=== PATIENT | male | born 1955 | race Two or more races ===

== ENCOUNTER 2017-02-15 11:03 | Emergency (ER) | payer MEDICAID, OTHER ==
[~2017-02-15] VITALS: Ht 162.6 cm; Wt 74.8 kg
[2017-02-15 11:03] VITALS: BP 138/80
--- NOTE | 2017-02-15 11:25 | NUR ---
Patient discharged to home in stable condition. Written and verbal after care instructions given. Patient verbalizes understanding of instruction.
== END 2017-02-15 11:26 | disposition home or self-care (01) ==
LOC: ER 11:05
DX: F10.129 Alcohol abuse with intoxication, unspecified (principal); Z88.0 Allergy status to penicillin; Z88.6 Allergy status to analgesic agent
CPT/HCPCS: 99283; A4606; Z7610

== ENCOUNTER 2017-02-28 21:14 | Emergency (ER) | payer OTHER ==
[~2017-02-28] VITALS: Ht 165.1 cm; Wt 65.8 kg
--- NOTE | 2017-02-28 21:15 | NUR ---
pt to er bb ra for etoh. heavy smell of alcohol on pt breath. pt awake, alert and cooperative, however does appear intoxicated. admits to drinking alcohol. pt to er bed, changed into gown and connected to monitor. pt vital signs stable. breaths equal and unlabored. will cont to monitor pt.
[2017-02-28 22:07] LABS: BASOPHILS # (AUTO) 0.1 /CMM (0.0-0.2); BASOPHILS % (AUTO) 1.2 % (0.0-2.0); EOSINOPHILS # (AUTO) 0.2 /CMM (0.0-0.7); EOSINOPHILS % (AUTO) 2.4 % (0.0-6.0); HEMATOCRIT 27 % (39-51); HEMOGLOBIN 8.9 g/dL (13.5-17.5); LYMPHOCYTES # (AUTO) 2.8 /CMM (0.8-4.8); MEAN CORPUSCULAR HEMOGLOBIN 27 PG (26.0-33.0); MEAN CORPUSCULAR HGB CONC 33 g/dl (31.0-36.0); MEAN CORPUSCULAR VOLUME 82 fL (80-96); MONOCYTES # (AUTO) 0.5 /CMM (0.1-1.30); MONOCYTES % (AUTO) 5.2 % (2.0-12.0); NEUTROPHILS % (AUTO) 62.2 % (43.0-81.0); PLATELET COUNT (AUTO) 331 /CMM (150-450); RDW COEFFICIENT OF VARIATION 23.9 (11.5-15.0); RED BLOOD CELL COUNT(AUTO) 3.29 MIL/uL (4.5-6.0); WHITE BLOOD COUNT (AUTO) 9.6 K/uL (4.3-11.0)
[2017-02-28 22:18] LABS: CREATININE 0.9 mg/dL (0.6-1.3); POTASSIUM 3.3 mmol/L (3.5-5.1)
[2017-02-28 22:33] LABS: ALBUMIN 3.1 g/dL (3.4-5.0); BILIRUBIN,TOTAL 0.1 mg/dL (0.2-1.0); TOTAL PROTEIN, SERUM 7.5 g/dL (6.4-8.2)
--- NOTE | 2017-03-01 01:30 | NUR ---
pt sleeping in gurney. no signs of distress noted. pt vital signs stable. pt easily arousable. breaths equal and unlabored. will cont to monitor pt.
--- NOTE | 2017-03-01 05:49 | NUR ---
pt awake, alert and oriented x 4. pt admits to drinking yesterday. pt denies si/hi. pt requesting to be discharged home. pt ok to be discharged home per dr peñaloza. IV removed. Catheter intact and site benign. Pressure and 4x4 applied to site. No bleeding noted.Patient discharged to home in stable condition. Written and verbal after care instructions given. Patient verbalizes understanding of instruction.Patient is awake and alert to self, day, and place. pt ambulatory with a steady gait
[2017-03-01 05:56] VITALS: BP 127/80
== END 2017-03-01 05:56 | disposition home or self-care (01) ==
LOC: ER 21:15
DX: F10.229 Alcohol dependence with intoxication, unspecified (principal); F32.9 Major depressive disorder, single episode, unspecified; Z88.0 Allergy status to penicillin; Z88.6 Allergy status to analgesic agent
CPT/HCPCS: 80048-TC; 80076-TC; 85025-TC; A4606; G0480; Z7610

== ENCOUNTER 2017-03-03 11:55 | Emergency (ER) | payer OTHER ==
[~2017-03-03] VITALS: Ht 154.9 cm; Wt 56.7 kg
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
--- NOTE | 2017-03-03 12:38 | NUR ---
PT TAKEN TO CT VIA OUSMANE
[2017-03-03 14:15] VITALS: BP 126/66
[2017-03-03] MEDS ORDERED: TDAP [DIPH/PERTUSSIS/TET] 0.5 ML VIAL IM ONE ×2 (14:15→14:30)
== END 2017-03-03 14:32 | disposition home or self-care (01) ==
LOC: ER 11:57
DX: S06.0X9A Concussion with loss of consciousness of unspecified duration, initial encounter (principal); S00.03XA Contusion of scalp, initial encounter; S00.91XA Abrasion of unspecified part of head, initial encounter; F10.10 Alcohol abuse, uncomplicated; Z23 Encounter for immunization; Z88.0 Allergy status to penicillin; Z88.6 Allergy status to analgesic agent; Y04.2XXA Assault by strike against or bumped into by another person, initial encounter; Y93.89 Activity, other specified; Y92.89 Other specified places as the place of occurrence of the external cause; Y99.9 Unspecified external cause status
CPT/HCPCS: 70450; 72125; 90471; 90715; 99284; A4606; A6402; Z7610

== ENCOUNTER 2017-07-01 11:44 | Emergency (ER) | payer OTHER ==
[~2017-07-01] VITALS: Ht 152.4 cm; Wt 68.9 kg
--- NOTE | 2017-07-01 11:46 | NUR ---
PT AMBULATORY TO ER BED 14. STATES BEEN DRINKING LAST NIGHT AND NOW HAVING LUQ ABDOMINAL PAIN W NAUSEA AND VOMITING DENIES DIARRHEA. PLACED ON MONITOR. NAD NOTED. AWAITING MD MARQUEZ.
--- NOTE | 2017-07-01 11:53 | NUR ---
DR NERI AT BEDSIDE FOR EVAL.
[2017-07-01] MEDS ORDERED: ONDANSETRON HCL/PF 4 MG/2 ML VIAL IVP ONE (12:00)
[2017-07-01] MEDS ORDERED: IV NS 0.9% 1,000 ML BAG IV ONE ×2 (12:00→14:00)
[2017-07-01] MEDS ORDERED: LIDOCAINE VISCOUS 2% UD 15 ML UDC MM ONE (12:00)
[2017-07-01] MEDS ORDERED: MAG HYDROX/AL HYDROX/SIMETH 30 ML UDC PO ONE (12:00)
--- NOTE | 2017-07-01 12:10 | NUR ---
IV LINE STARTED BLOOD DRAWN AND SENT TO LAB.
[2017-07-01] MEDS ORDERED: LIDOCAINE VISCOUS 2% UD 15 ML UDC ONE (12:21)
[2017-07-01] MEDS ORDERED: ONDANSETRON HCL/PF 4 MG/2 ML VIAL ONE ×2 (12:21→15:25)
[2017-07-01] MEDS ORDERED: MAG HYDROX/AL HYDROX/SIMETH 30 ML UDC ONE (12:21)
[2017-07-01 12:42] LABS: BASOPHILS % (AUTO) 0.5 % (0.0-2.0); EOSINOPHILS # (AUTO) 0.1 /CMM (0.0-0.7); EOSINOPHILS % (AUTO) 1.1 % (0.0-6.0); HEMATOCRIT 31 % (39-51); HEMOGLOBIN 9.8 g/dL (13.5-17.5); LYMPHOCYTES # (AUTO) 2.1 /CMM (0.8-4.8); LYMPHOCYTES % (AUTO) 22.2 % (20.0-44.0); MEAN CORPUSCULAR HEMOGLOBIN 26 PG (26.0-33.0); MEAN CORPUSCULAR HGB CONC 32 g/dl (31.0-36.0); MEAN CORPUSCULAR VOLUME 80 fL (80-96); MONOCYTES # (AUTO) 0.7 /CMM (0.1-1.30); MONOCYTES % (AUTO) 7.2 % (2.0-12.0); NEUTROPHILS # (AUTO) 6.4 /CMM (1.8-8.9); PLATELET COUNT (AUTO) 143 /CMM (150-450); RED BLOOD CELL COUNT(AUTO) 3.83 MIL/uL (4.5-6.0); WHITE BLOOD COUNT (AUTO) 9.3 K/uL (4.3-11.0)
[2017-07-01 12:44] LABS: ALBUMIN 3.7 g/dL (3.4-5.0); BILIRUBIN,DIRECT 0.1 mg/dL (0.0-0.2); BILIRUBIN,TOTAL 0.3 mg/dL (0.2-1.0); CALCIUM, SERUM 8.6 mg/dL (8.5-10.1); CREATININE 2.4 mg/dL (0.6-1.3); TOTAL PROTEIN, SERUM 8.7 g/dL (6.4-8.2)
[2017-07-01 12:46] LABS: POTASSIUM 2.8 mmol/L (3.5-5.1)
[2017-07-01] MEDS ORDERED: POTASSIUM CHLORIDE 20 MEQ TAB.PRT.SR PO ONE ×2 (13:00→13:07)
[2017-07-01] MEDS ORDERED: Magnesium 1 GM/2 ML VIAL IV ONE (14:00)
[2017-07-01] MEDS ORDERED: Magnesium 1GM/D5W 100ML PREMIX 200 ML IV ONE (14:26)
[2017-07-01 15:03] LABS: CALCIUM, SERUM 6.9 mg/dL (8.5-10.1); CREATININE 1.7 mg/dL (0.6-1.3)
[2017-07-01 15:06] LABS: POTASSIUM 2.8 mmol/L (3.5-5.1)
[2017-07-01] MEDS ORDERED: POTASSIUM CL. PREMIX PERIPHER. 50 ML IV SCH (15:30)
--- NOTE | 2017-07-01 15:30 | NUR ---
PT IS NAUSEATED. DR HUFF AWARE. ZOFRAN 4MG I TEXTILE COLORIST FORMULATOR GIVEN PER ERMD VERBAL ORDER.
--- NOTE | 2017-07-01 17:25 | NUR ---
PT AMBULATORY W/ STEADY GAIT. STATES FEELING MUCH BETTER. DR HUFF MADE AWARE.
--- NOTE | 2017-07-01 17:35 | NUR ---
Patient discharged to home in stable condition. Written and verbal after care instructions given. Patient verbalizes understanding of instruction.IV removed. Catheter intact and site benign. Pressure and 4x4 applied to site. No bleeding noted.
[2017-07-01 17:37] VITALS: BP 127/76
== END 2017-07-01 17:38 | disposition home or self-care (01) ==
LOC: ER 11:46
DX: R10.12 Left upper quadrant pain (principal); R11.0 Nausea; F10.10 Alcohol abuse, uncomplicated; N28.9 Disorder of kidney and ureter, unspecified; Z88.0 Allergy status to penicillin; Z88.6 Allergy status to analgesic agent
CPT/HCPCS: 36415; 80048 ×2; 80076; 83690; 85025; 96365; 96366; 96375; 99285; A4606; J2405 ×2; J3475; J3480; J7030 ×2; Z7610

== ENCOUNTER 2017-11-22 16:17 | Emergency (ER) | payer OTHER ==
[~2017-11-22] VITALS: Ht 157.5 cm; Wt 61.2 kg
[2017-11-22 16:20] VITALS: BP 153/82
== END 2017-11-22 19:38 | disposition home or self-care (01) ==
LOC: ER 16:20
DX: M25.561 Pain in right knee (principal); M25.562 Pain in left knee; G89.29 Other chronic pain; Z88.0 Allergy status to penicillin; Z88.6 Allergy status to analgesic agent; F10.10 Alcohol abuse, uncomplicated; Z60.2 Problems related to living alone
CPT/HCPCS: 73564-TC; A4606; Z7610

== ENCOUNTER 2017-11-29 17:55 | Emergency (ER) | payer OTHER ==
[~2017-11-29] VITALS: Ht 152.4 cm; Wt 59.0 kg
--- NOTE | 2017-11-29 18:00 | NUR ---
PT BIB RA WITH A C/O ETOH. PT IS AMHARIC SPEAKING. PT IS ON THE MONITOR AND CONTINUOUS PULSE OX. PT IS SATURATING AT 88% ON RA. PT PLACED ON 2L O2 VIA NC. Onel BELLO, PAC NOTIFIED.
[2017-11-29] MEDS ORDERED: IV NS 0.9% 1,000 ML BAG IV ONE (18:30)
[2017-11-29 18:49] LABS: BASOPHILS # (AUTO) 0.1 /CMM (0.0-0.2); BASOPHILS % (AUTO) 0.7 % (0.0-2.0); EOSINOPHILS % (AUTO) 1.8 % (0.0-6.0); HEMATOCRIT 25 % (39-51); HEMOGLOBIN 7.9 g/dL (13.5-17.5); LYMPHOCYTES # (AUTO) 3.4 /CMM (0.8-4.8); LYMPHOCYTES % (AUTO) 39.4 % (20.0-44.0); MEAN CORPUSCULAR HGB CONC 32 g/dl (31.0-36.0); MEAN CORPUSCULAR VOLUME 79 fL (80-96); MONOCYTES # (AUTO) 0.6 /CMM (0.1-1.30); MONOCYTES % (AUTO) 7.4 % (2.0-12.0); NEUTROPHILS # (AUTO) 4.3 /CMM (1.8-8.9); NEUTROPHILS % (AUTO) 50.7 % (43.0-81.0); PLATELET COUNT (AUTO) 269 /CMM (150-450); RDW COEFFICIENT OF VARIATION 21.8 (11.5-15.0); RED BLOOD CELL COUNT(AUTO) 3.12 MIL/uL (4.5-6.0); WHITE BLOOD COUNT (AUTO) 8.6 K/uL (4.3-11.0)
[2017-11-29 19:01] LABS: CALCIUM, SERUM 7.6 mg/dL (8.5-10.1); POTASSIUM 3.3 mmol/L (3.5-5.1)
[2017-11-29 19:07] LABS: BILIRUBIN,DIRECT 0.1 mg/dL (0.0-0.2); BILIRUBIN,TOTAL 0.1 mg/dL (0.2-1.0); MAGNESIUM 2.1 mg/dL (1.8-2.4); TOTAL PROTEIN, SERUM 7.6 g/dL (6.4-8.2)
--- NOTE | 2017-11-29 19:55 | NUR ---
PT APPEARS TO BE RESTING COMFORTABLY. PT DOES NOT KNOW WHY HE IS HERE. PT IS ANXIOUS TO GO.
[2017-11-29] MEDS ORDERED: POTASSIUM CHLORIDE 20 MEQ TAB.PRT.SR PO ONE ×2 (20:00→21:38)
--- NOTE | 2017-11-29 21:34 | NUR ---
PT AMBULATED TO THE BATHROOM AND BACK TO BED #13 WITH A STEADY GAIT.
--- NOTE | 2017-11-29 22:56 | NUR ---
PT APPEARS TO BE SLEEPING SOUNDLY WITH NO S/S OF PAIN OR DISTRESS. PT TOOK ALL MONITOR LEADS OFF AND DOES NOT WANT THEM ON. WILL CONTINUE TO MONITOR THE PT.
[2017-11-30 04:22] VITALS: BP 106/78
== END 2017-11-30 04:32 | disposition home or self-care (01) ==
LOC: ER 17:58
DX: F10.129 Alcohol abuse with intoxication, unspecified (principal); R09.02 Hypoxemia; E86.0 Dehydration; R41.82 Altered mental status, unspecified; D50.9 Iron deficiency anemia, unspecified; E87.6 Hypokalemia; E83.51 Hypocalcemia; R79.89 Other specified abnormal findings of blood chemistry; Z88.0 Allergy status to penicillin; Z88.6 Allergy status to analgesic agent; Z60.2 Problems related to living alone
CPT/HCPCS: 36415; 71045; 80048; 80076; 83735; 85025; 93005; 96360; 99285; A4606; G0480; J7030; Z7610

== ENCOUNTER 2017-12-01 10:29 | Emergency (ER) | payer OTHER ==
[~2017-12-01] VITALS: Ht 152.4 cm; Wt 61.2 kg
[2017-12-01 10:33] VITALS: BP 133/74
--- NOTE | 2017-12-01 12:28 | NUR ---
PT DC IN STABLE CONDITION. AMBULATORY WITH STEADY GAIT. RR EVEN AND UNLABORED. VSS. NO FURTHER COMPLAINTS.
== END 2017-12-01 12:28 | disposition home or self-care (01) ==
LOC: ER 10:30
DX: F10.129 Alcohol abuse with intoxication, unspecified (principal); Z88.0 Allergy status to penicillin; Z88.6 Allergy status to analgesic agent; Z60.2 Problems related to living alone
CPT/HCPCS: A4606; Z7610

== ENCOUNTER 2018-03-12 09:23 | Emergency (ER) | payer OTHER ==
[~2018-03-12] VITALS: Ht 165.1 cm; Wt 63.5 kg
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
[2018-03-12] MEDS ORDERED: FAMOTIDINE (20 MG) 20 MG TABLET ONE (09:30)
[2018-03-12] MEDS ORDERED: FAMOTIDINE (20 MG) 20 MG TABLET PO ONE (09:30)
[2018-03-12] MEDS ORDERED: MAG HYDROX/AL HYDROX/SIMETH 30 ML UDC PO ONE (09:30)
[2018-03-12] MEDS ORDERED: MAG HYDROX/AL HYDROX/SIMETH 30 ML UDC ONE (09:30)
--- NOTE | 2018-03-12 10:15 | NUR ---
Patient is resting comfortably in bed with eyes closed. Easily aroused. VSS
[2018-03-12] MEDS ORDERED: CHLORDIAZEPOXIDE HCL 25 MG CAPSULE PO ONE (11:00)
[2018-03-12] MEDS ORDERED: CHLORDIAZEPOXIDE HCL 25 MG CAPSULE ONE (11:09)
--- NOTE | 2018-03-12 11:45 | NUR ---
Patient is resting comfortably in bed with eyes closed. Easily aroused. VSS
--- NOTE | 2018-03-12 13:16 | NUR ---
Patient discharged to home in stable condition. Written and verbal after care instructions given. Patient verbalizes understanding of instruction. Patient ambulates out of ER with stable gait. AAOX3.
[2018-03-12 13:18] VITALS: BP 139/98
== END 2018-03-12 13:21 | disposition home or self-care (01) ==
LOC: ER 09:24
DX: F10.129 Alcohol abuse with intoxication, unspecified (principal); R10.13 Epigastric pain; Z88.0 Allergy status to penicillin; Z88.6 Allergy status to analgesic agent; Z60.2 Problems related to living alone; Y90.9 Presence of alcohol in blood, level not specified
CPT/HCPCS: 71046; 74021; A4606; Z7610

== ENCOUNTER 2019-02-01 00:16 | Emergency (ER) | payer OTHER ==
[~2019-02-01] VITALS: Ht 149.9 cm; Wt 74.8 kg
--- NOTE | 2019-02-01 00:20 | NUR ---
Note undone in EDM - 02/01/19 at 0021 by BELINDATADEREK IV removed. Catheter intact and site benign. Pressure and 4x4 applied to site. No bleeding noted.Patient discharged to home in stable condition. Written and verbal after care instructions given. Patient verbalizes understanding of instruction.Patient is awake and alert to self, day, and place.Pt ambulatory with a steady gait
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
--- NOTE | 2019-02-01 00:30 | NUR ---
TECH AT BEDSIDE FOR EKG
--- NOTE | 2019-02-01 00:33 | NUR ---
PHLEB AT BEDSIDE FOR BLOOD DRAW
[2019-02-01 00:46] LABS: BASOPHILS # (AUTO) 0.1 /CMM (0.0-0.2); BASOPHILS % (AUTO) 1.2 % (0.0-2.0); EOSINOPHILS % (AUTO) 1.6 % (0.0-6.0); HEMATOCRIT 28 % (39-51); HEMOGLOBIN 9.2 g/dL (13.5-17.5); LYMPHOCYTES # (AUTO) 2.5 /CMM (0.8-4.8); LYMPHOCYTES % (AUTO) 32.1 % (20.0-44.0); MEAN CORPUSCULAR HGB CONC 33 g/dl (31.0-36.0); MEAN CORPUSCULAR VOLUME 85 fL (80-96); MONOCYTES # (AUTO) 0.4 /CMM (0.1-1.30); MONOCYTES % (AUTO) 5.4 % (2.0-12.0); NEUTROPHILS # (AUTO) 4.6 /CMM (1.8-8.9); NEUTROPHILS % (AUTO) 59.7 % (43.0-81.0); PLATELET COUNT (AUTO) 193 /CMM (150-450); RED BLOOD CELL COUNT(AUTO) 3.29 MIL/uL (4.5-6.0); WHITE BLOOD COUNT (AUTO) 7.8 K/uL (4.3-11.0)
--- NOTE | 2019-02-01 00:47 | NUR ---
RADIOLOGY AT BEDSIDE FOR XRAY
[2019-02-01 00:58] LABS: CALCIUM, SERUM 8.1 mg/dL (8.5-10.1); POTASSIUM 3.5 mmol/L (3.5-5.1)
[2019-02-01 01:05] LABS: ALBUMIN 3.1 g/dL (3.4-5.0); BILIRUBIN,DIRECT 0.1 mg/dL (0.0-0.2); BILIRUBIN,TOTAL 0.4 mg/dL (0.2-1.0); TOTAL PROTEIN, SERUM 7.9 g/dL (6.4-8.2)
--- NOTE | 2019-02-01 06:36 | NUR ---
PT AAOX4. MEDICALLY CLEARED FOR DISCHARGE. ABLE TO AMBULATE WITH STEADY GAIT. INSTRUCTED NOT TO DRIVE, STATES HE WILL FIND RIDE TO HOME IN [place]. Patient discharged to home in stable condition. Written and verbal after care instructions given. Patient verbalizes understanding of instruction.
[2019-02-01 06:37] VITALS: BP 139/84
== END 2019-02-01 06:38 | disposition home or self-care (01) ==
LOC: ER 00:23
DX: F10.129 Alcohol abuse with intoxication, unspecified (principal); D64.9 Anemia, unspecified; Z98.890 Other specified postprocedural states; Z88.0 Allergy status to penicillin; Z88.6 Allergy status to analgesic agent; Z60.2 Problems related to living alone; Y90.8 Blood alcohol level of 240 mg/100 ml or more
CPT/HCPCS: 36415; 71045; 80048; 80076; 80307; 80329; 84484; 85025; 85730; 93005; 99284; G0480

== ENCOUNTER 2019-03-27 10:40 | Emergency (ER) | payer OTHER ==
[~2019-03-27] VITALS: Ht 139.7 cm; Wt 68.5 kg
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
--- NOTE | 2019-03-27 10:49 | NUR ---
SEEN AND EXAMINED BY DR. NERI.
--- NOTE | 2019-03-27 10:50 | NUR ---
PATIENT BIB RA. PATIENT WITH C/O PAIN ON CHEST. UNABLE TO DESCRIBE PAIN. NO CHANGES IN LOC NOTED. PATIENT A/O X 2. EKG DONE. PATIENT CONNECTED TO MONITOR. WILL CONTINUE TO MONITOR
[2019-03-27 10:59] LABS: BASOPHILS # (AUTO) 0.1 /CMM (0.0-0.2); BASOPHILS % (AUTO) 0.9 % (0.0-2.0); EOSINOPHILS % (AUTO) 0.9 % (0.0-6.0); HEMATOCRIT 29 % (39-51); HEMOGLOBIN 9.2 g/dL (13.5-17.5); LYMPHOCYTES % (AUTO) 35.4 % (20.0-44.0); MEAN CORPUSCULAR HGB CONC 32 g/dl (31.0-36.0); MEAN CORPUSCULAR VOLUME 83 fL (80-96); MONOCYTES # (AUTO) 0.4 /CMM (0.1-1.30); MONOCYTES % (AUTO) 4.3 % (2.0-12.0); NEUTROPHILS # (AUTO) 4.9 /CMM (1.8-8.9); NEUTROPHILS % (AUTO) 58.5 % (43.0-81.0); PLATELET COUNT (AUTO) 265 /CMM (150-450); RED BLOOD CELL COUNT(AUTO) 3.46 MIL/uL (4.5-6.0); WHITE BLOOD COUNT (AUTO) 8.4 K/uL (4.3-11.0)
[2019-03-27] MEDS ORDERED: LIDOCAINE VISCOUS 2% UD 15 ML UDC MM ONE (11:00)
[2019-03-27] MEDS ORDERED: MAG HYDROX/AL HYDROX/SIMETH 30 ML UDC PO ONE (11:00)
--- NOTE | 2019-03-27 11:00 | NUR ---
IV LINE ESTABLISHED ON RIGHT AC g18. BLOOD COLLECTED AND SENT TO ALB Addendum: 03/27/19 at 1100 by HUMPHREY SENT TO LAB*
[2019-03-27 11:08] LABS: CARBON DIOXIDE 24 mmol/L (21-32); CHLORIDE 108 mmol/L (98-107); CREATININE 1.1 mg/dL (0.6-1.3); GLUCOSE 103 mg/dL (74-106); POTASSIUM 3.6 mmol/L (3.5-5.1); SODIUM SERUM 145 mmol/L (136-145); UREA NITROGEN, BLOOD 17 mg/dL (7-18)
[2019-03-27 11:17] LABS: ALANINE AMINOTRANSFERASE 30 U/L (12-78); ALBUMIN 3.7 g/dL (3.4-5.0); ALKALINE PHOSPHATASE 83 U/L (46-116); ASPARTATE AMINOTRANSFERASE 46 U/L (15-37); BILIRUBIN,DIRECT 0.1 mg/dL (0.0-0.2); BILIRUBIN,TOTAL 0.2 mg/dL (0.2-1.0); SALICYLATE 0.9 mg/dL (2.8-20.0); TOTAL PROTEIN, SERUM 8.4 g/dL (6.4-8.2)
[2019-03-27] MEDS ORDERED: MAG HYDROX/AL HYDROX/SIMETH 30 ML UDC ONE (11:48)
[2019-03-27] MEDS ORDERED: LIDOCAINE VISCOUS 2% UD 15 ML UDC ONE (11:48)
[2019-03-27] MEDS ORDERED: IV NS 0.9% 1,000 ML BAG IV ONE (14:00)
[2019-03-27 14:06] VITALS: BP 122/88
--- NOTE | 2019-03-27 14:35 | NUR ---
PT ABLE TO WALK STRAIGHT AND WANTS TO BE DISCHARGE, AWARE.
--- NOTE | 2019-03-27 14:37 | NUR ---
IV removed. Catheter intact and site benign. Pressure and 4x4 applied to site. No bleeding noted. Patient discharged to home in stable condition. Written and verbal after care instructions given. Patient verbalizes understanding of instruction.
== END 2019-03-27 14:40 | disposition home or self-care (01) ==
LOC: ER 10:42
DX: F10.129 Alcohol abuse with intoxication, unspecified (principal); I10 Essential (primary) hypertension; E11.9 Type 2 diabetes mellitus without complications; F32.9 Major depressive disorder, single episode, unspecified; R00.0 Tachycardia, unspecified; R47.81 Slurred speech; F10.10 Alcohol abuse, uncomplicated; R06.89 Other abnormalities of breathing; Y90.8 Blood alcohol level of 240 mg/100 ml or more; Z88.0 Allergy status to penicillin; Z88.6 Allergy status to analgesic agent; Z60.2 Problems related to living alone
CPT/HCPCS: 36415; 71045; 80048; 80076; 80307; 80329; 83690; 84484 ×2; 85025; 93005 ×3; 99284; G0480; J7030

== ENCOUNTER 2019-03-29 11:01 | Emergency (ER) | payer OTHER ==
[~2019-03-29] VITALS: Ht 139.7 cm; Wt 68.5 kg
--- NOTE | 2019-03-29 11:15 | NUR ---
BB EMS to ER , no acute events
--- NOTE | 2019-03-29 12:11 | NUR ---
Social service consult requested by Dr. Talbot for ETOH. Pt. is a 63 year old male who was brought to [facility] ED by RA for ETOH and suicidal ideations. Pt. has had several visits to [facility] ED for ETOH. DIEGO met with pt. bedside. Pt. is alert and oriented x 3. Pt. appears to still be slightly intoxicated but is able to answer questions. Cynthia from Admitting assistance in Greenlandic translation. Pt. states he drinks Marcia daily and has been drinking since yesterday. Pt. states he lives with his sister at [address] [place] [phone], [facility] [place]. Pt. states he is depressed but does not have suicidal or homicidal ideations at this time. Pt. was provided with the following mental health resources: [facility] ; [facility] . Pt. was also provided with the following alcohol treatment program resources: [facility], ; [facility] Substance Abuse Hotline and [facility] . DIEGO encouraged pt. to go to a treatment program. Pt. will require TAP card upon discharge. DIEGO updated RUMA Erickson and Dr. Talbot with pt's discharge plan.
--- NOTE | 2019-03-29 12:59 | NUR ---
Patient discharged to home in stable condition. Written and verbal after care instructions given. Patient verbalizes understanding of instruction.
[2019-03-29 13:00] VITALS: BP 155/70
== END 2019-03-29 13:02 | disposition home or self-care (01) ==
LOC: ER 11:05
DX: F10.129 Alcohol abuse with intoxication, unspecified (principal); I10 Essential (primary) hypertension; E11.9 Type 2 diabetes mellitus without complications; F32.9 Major depressive disorder, single episode, unspecified; M19.90 Unspecified osteoarthritis, unspecified site; Z88.0 Allergy status to penicillin; Z88.6 Allergy status to analgesic agent; Z60.2 Problems related to living alone; Y90.9 Presence of alcohol in blood, level not specified

== ENCOUNTER 2019-05-02 09:12 | Emergency (ER) | payer OTHER ==
[~2019-05-02] VITALS: Ht 152.4 cm; Wt 68.0 kg
--- NOTE | 2019-05-02 09:16 | NUR ---
BIBRA81, CAME IN DUE TO ALCOHOL INTOXICATION AND CHEST WALL PAIN, TO ER BED 13, HOOKED TO MONITOR, [facility], AWAITING MD MARQUEZ.
--- NOTE | 2019-05-02 09:31 | NUR ---
AT BEDSIDE FOR EVAL
[2019-05-02 10:12] LABS: BASOPHILS # (AUTO) 0.1 /CMM (0.0-0.2); BASOPHILS % (AUTO) 1.5 % (0.0-2.0); EOSINOPHILS % (AUTO) 0.2 % (0.0-6.0); HEMATOCRIT 30 % (39-51); HEMOGLOBIN 9.2 g/dL (13.5-17.5); LYMPHOCYTES # (AUTO) 1.4 /CMM (0.8-4.8); LYMPHOCYTES % (AUTO) 19.9 % (20.0-44.0); MEAN CORPUSCULAR HGB CONC 31 g/dl (31.0-36.0); MEAN CORPUSCULAR VOLUME 80 fL (80-96); MONOCYTES # (AUTO) 0.3 /CMM (0.1-1.30); MONOCYTES % (AUTO) 4.1 % (2.0-12.0); NEUTROPHILS # (AUTO) 5.2 /CMM (1.8-8.9); NEUTROPHILS % (AUTO) 74.3 % (43.0-81.0); PLATELET COUNT (AUTO) 155 /CMM (150-450); RED BLOOD CELL COUNT(AUTO) 3.71 MIL/uL (4.5-6.0)
[2019-05-02 10:20] LABS: CALCIUM, SERUM 8.4 mg/dL (8.5-10.1); CARBON DIOXIDE 22 mmol/L (21-32); CHLORIDE 103 mmol/L (98-107); GLUCOSE 108 mg/dL (74-106); POTASSIUM 3.3 mmol/L (3.5-5.1); SODIUM SERUM 140 mmol/L (136-145); UREA NITROGEN, BLOOD 12 mg/dL (7-18)
--- NOTE | 2019-05-02 13:25 | NUR ---
PATIENT ABLKE TO AMBULATE W STEADY GAIT. MADE AWARE
--- NOTE | 2019-05-02 14:03 | NUR ---
IV removed. Catheter intact and site benign. Pressure and 4x4 applied to site. No bleeding noted.Patient discharged to home in stable condition. Written and verbal after care instructions given. Patient verbalizes understanding of instruction.
--- NOTE | 2019-05-02 14:03 | NUR ---
PROVIDED W TAP CARD
[2019-05-02 14:23] VITALS: BP 156/99
== END 2019-05-02 14:05 | disposition home or self-care (01) ==
LOC: ER 09:16
DX: F10.129 Alcohol abuse with intoxication, unspecified (principal); R07.89 Other chest pain; I10 Essential (primary) hypertension; E11.9 Type 2 diabetes mellitus without complications; M19.90 Unspecified osteoarthritis, unspecified site; F32.9 Major depressive disorder, single episode, unspecified; Z88.0 Allergy status to penicillin; Z88.6 Allergy status to analgesic agent; Z60.2 Problems related to living alone; Y90.9 Presence of alcohol in blood, level not specified
CPT/HCPCS: 36415; 71045-TC; 80048-TC; 84484-TC; 85025-TC

== ENCOUNTER 2019-08-24 11:31 | Emergency (ER) | payer OTHER ==
[~2019-08-24] VITALS: Ht 152.4 cm; Wt 68.5 kg
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
--- NOTE | 2019-08-24 11:37 | NUR ---
dr doran at bedside for eval.
--- NOTE | 2019-08-24 11:50 | NUR ---
iv line started blood drawn and sent to lab.
[2019-08-24 11:54] LABS: BASOPHILS # (AUTO) 0.1 /CMM (0.0-0.2); BASOPHILS % (AUTO) 1.4 % (0.0-2.0); EOSINOPHILS % (AUTO) 0.6 % (0.0-6.0); HEMATOCRIT 26 % (39-51); HEMOGLOBIN 8.2 g/dL (13.5-17.5); LYMPHOCYTES # (AUTO) 2.5 /CMM (0.8-4.8); LYMPHOCYTES % (AUTO) 30.2 % (20.0-44.0); MEAN CORPUSCULAR HGB CONC 32 g/dl (31.0-36.0); MEAN CORPUSCULAR VOLUME 81 fL (80-96); MONOCYTES # (AUTO) 0.4 /CMM (0.1-1.30); MONOCYTES % (AUTO) 4.2 % (2.0-12.0); NEUTROPHILS # (AUTO) 5.3 /CMM (1.8-8.9); NEUTROPHILS % (AUTO) 63.6 % (43.0-81.0); PLATELET COUNT (AUTO) 398 /CMM (150-450); RED BLOOD CELL COUNT(AUTO) 3.19 MIL/uL (4.5-6.0); WHITE BLOOD COUNT (AUTO) 8.4 K/uL (4.3-11.0)
[2019-08-24] MEDS ORDERED: ONDANSETRON HCL/PF 4 MG/2 ML VIAL IV ONE (12:00)
[2019-08-24] MEDS ORDERED: IV NS 0.9% 500 ML IV ONE (12:00)
[2019-08-24 12:02] LABS: CARBON DIOXIDE 28 mmol/L (21-32); CHLORIDE 112 mmol/L (98-107); CREATININE 0.9 mg/dL (0.6-1.3); GLUCOSE 150 mg/dL (74-106); POTASSIUM 3.5 mmol/L (3.5-5.1); SODIUM SERUM 149 mmol/L (136-145); UREA NITROGEN, BLOOD 16 mg/dL (7-18)
[2019-08-24 12:09] LABS: ALANINE AMINOTRANSFERASE 41 U/L (12-78); ALBUMIN 3.3 g/dL (3.4-5.0); ALKALINE PHOSPHATASE 89 U/L (46-116); ASPARTATE AMINOTRANSFERASE 45 U/L (15-37); BILIRUBIN,DIRECT 0.1 mg/dL (0.0-0.2); BILIRUBIN,TOTAL 0.1 mg/dL (0.2-1.0); TOTAL PROTEIN, SERUM 7.8 g/dL (6.4-8.2)
--- NOTE | 2019-08-24 15:41 | NUR ---
pt sleeping. easily arousable. on monitor. vss. will continue to monitor.
--- NOTE | 2019-08-24 16:33 | NUR ---
pt is awake ambulatory w/ steady gait. denies SI at this time. awaiting ERMD re eval.
--- NOTE | 2019-08-24 16:54 | NUR ---
Pt denies SI/HI. stating he wants to go home before it gets dark. medically cleared by ERMD. Patient discharged to home in stable condition. Written and verbal after care instructions given. Patient verbalizes understanding of instruction.IV removed. Catheter intact and site benign. Pressure and 4x4 applied to site. No bleeding noted.
[2019-08-24 16:56] VITALS: BP 128/84
== END 2019-08-24 16:56 | disposition home or self-care (01) ==
LOC: ER 11:34
DX: S01.01XD Laceration without foreign body of scalp, subsequent encounter (principal); R41.82 Altered mental status, unspecified; F10.129 Alcohol abuse with intoxication, unspecified; R07.89 Other chest pain; F32.9 Major depressive disorder, single episode, unspecified; R00.0 Tachycardia, unspecified; I10 Essential (primary) hypertension; E11.9 Type 2 diabetes mellitus without complications; Y90.8 Blood alcohol level of 240 mg/100 ml or more; Z88.0 Allergy status to penicillin; Z88.6 Allergy status to analgesic agent; Z60.2 Problems related to living alone; X58.XXXD Exposure to other specified factors, subsequent encounter
CPT/HCPCS: 36415; 71045; 80048; 80076; 80307; 84484 ×2; 85025; 85730; 93005 ×3; 99284; J7040; G0480

== ENCOUNTER 2019-08-26 09:23 | Emergency (ER) | payer OTHER ==
[~2019-08-26] VITALS: Ht 162.6 cm; Wt 68.0 kg
--- NOTE | 2019-08-26 12:10 | NUR ---
Ambulatory- BRP, NO acute distress, cooperative and compliant. Diet served ate 100%
[2019-08-26 14:13] VITALS: BP 137/81
--- NOTE | 2019-08-26 14:18 | NUR ---
Patient discharged to home in stable condition. Written and verbal after care instructions given. Patient verbalizes understanding of instruction.
== END 2019-08-26 14:39 | disposition home or self-care (01) ==
LOC: ER 09:25
DX: R05 Cough (principal); F10.10 Alcohol abuse, uncomplicated; I10 Essential (primary) hypertension; E11.9 Type 2 diabetes mellitus without complications; F32.9 Major depressive disorder, single episode, unspecified; M19.90 Unspecified osteoarthritis, unspecified site; Z88.0 Allergy status to penicillin; Z88.6 Allergy status to analgesic agent; Z60.2 Problems related to living alone; Y90.9 Presence of alcohol in blood, level not specified

== ENCOUNTER 2019-10-11 18:48 | Emergency (ER) | payer MEDICARE, OTHER ==
[~2019-10-11] VITALS: Ht 154.9 cm; Wt 62.1 kg
--- NOTE | 2019-10-11 18:58 | NUR ---
PT BIB RA WITH A C/O SI AND DEPRESSION. PT IS DANISH SPEAKING ONLY. PT WAS TRIAGED AND TAKEN TO ER 15. PT IS UNABLE TO GIVE A URINE SAMPLE AT THIS TIME. Addendum: 10/11/19 at [address]323 [address] [employer] undone in EDM - 10/11/19 at 2324 by [email or web address] PT APPEARS TO BE SLEEPING SOUNDLY WITH NO S/S OF PAIN OR DISTRESS. PT REC'D WARM BLANKETS AND SITTER IS AT THE BEDSIDE. PT IS OFF THE MONITOR AND CONTINUOUS PULSE OX AT THIS TIME.
--- NOTE | 2019-10-11 19:26 | NUR ---
DR COBURN IS AT THE BEDSIDE.
--- NOTE | 2019-10-11 20:34 | NUR ---
PT WILL CONTINUE TO BE MONITORED. SITTER IS AT THE BEDSIDE, JOE ZAMUDIO
--- NOTE | 2019-10-11 23:24 | NUR ---
PT APPEARS TO BE SLEEPING SOUNDLY WITH NO S/S OF PAIN OR DISTRESS. PT REC'D WARM BLANKETS AND SITTER IS AT THE BEDSIDE. PT IS OFF THE MONITOR AND CONTINUOUS PULSE OX AT THIS TIME.
[2019-10-11 23:48] LABS: BASOPHILS # (AUTO) 0.1 /CMM (0.0-0.2); BASOPHILS % (AUTO) 1.9 % (0.0-2.0); EOSINOPHILS % (AUTO) 0.6 % (0.0-6.0); HEMATOCRIT 25 % (39-51); HEMOGLOBIN 7.9 g/dL (13.5-17.5); LYMPHOCYTES # (AUTO) 1.9 /CMM (0.8-4.8); LYMPHOCYTES % (AUTO) 32.1 % (20.0-44.0); MEAN CORPUSCULAR HGB CONC 32 g/dl (31.0-36.0); MEAN CORPUSCULAR VOLUME 79 fL (80-96); MONOCYTES # (AUTO) 0.2 /CMM (0.1-1.30); MONOCYTES % (AUTO) 3.8 % (2.0-12.0); NEUTROPHILS # (AUTO) 3.6 /CMM (1.8-8.9); NEUTROPHILS % (AUTO) 61.6 % (43.0-81.0); PLATELET COUNT (AUTO) 164 /CMM (150-450); RED BLOOD CELL COUNT(AUTO) 3.18 MIL/uL (4.5-6.0); WHITE BLOOD COUNT (AUTO) 5.8 K/uL (4.3-11.0)
--- NOTE | 2019-10-11 23:52 | NUR ---
PT IS GOING TO RADIOLOGY VIA [employer].
[2019-10-11 23:53] LABS: CALCIUM, SERUM 7.9 mg/dL (8.5-10.1); CARBON DIOXIDE 23 mmol/L (21-32); CHLORIDE 105 mmol/L (98-107); CREATININE 1.1 mg/dL (0.6-1.3); GLUCOSE 107 mg/dL (74-106); POTASSIUM 3.5 mmol/L (3.5-5.1); SODIUM SERUM 144 mmol/L (136-145); UREA NITROGEN, BLOOD 10 mg/dL (7-18)
[2019-10-12 00:01] LABS: ALANINE AMINOTRANSFERASE 28 U/L (12-78); ALBUMIN 3.4 g/dL (3.4-5.0); ALCOHOL, BLOOD 319 mg/dL (0-0); ALKALINE PHOSPHATASE 70 U/L (46-116); ASPARTATE AMINOTRANSFERASE 44 U/L (15-37); BILIRUBIN,DIRECT 0.1 mg/dL (0.0-0.2); BILIRUBIN,TOTAL 0.2 mg/dL (0.2-1.0); TOTAL PROTEIN, SERUM 7.5 g/dL (6.4-8.2)
--- NOTE | 2019-10-12 00:35 | NUR ---
CT FINDINGS ARE NEGATIVE. MD MARLEY'D REMOVAL OF C-COLLAR.
--- NOTE | 2019-10-12 00:35 | NUR ---
PT IS ON 2L O2 VIA NC. PT'S O2 SAT WAS 93% ON RA WHILE HE WAS SLEEPING. PT IS NOW 96% ON 2L O2 VIA NC.
--- NOTE | 2019-10-12 01:22 | NUR ---
PT APPEARS TO BE RESTING COMFORTABLY WITH NO S/S OF PAIN OR DISTRESS. SITTER IS AT THE BEDSIDE
--- NOTE | 2019-10-12 02:27 | NUR ---
PT IS SLEEPING COMFORTABLY WITH NO S/S OF PAIN OR DISTRESS. PT IS ON THE MONITOR AND CONTINUOUS PULSE OX. SITTER IS AT THE BEDSIDE.
--- NOTE | 2019-10-12 04:00 | NUR ---
PT IN BED SLEEPING COMFORTABLY. NAD NOTED
--- NOTE | 2019-10-12 06:59 | NUR ---
Patient discharged to home in stable condition. Written and verbal after care instructions given. Patient verbalizes understanding of instruction. Pt ambulatory with a steady gait
--- NOTE | 2019-10-12 06:59 | NUR ---
PT AMBULATORY W/O ASSIT ON STEADY GAIT.
[2019-10-12 07:00] VITALS: BP 132/79
== END 2019-10-12 07:01 | disposition home or self-care (01) ==
LOC: ER 18:54
DX: F10.129 Alcohol abuse with intoxication, unspecified (principal); R51 Headache; M54.2 Cervicalgia; I10 Essential (primary) hypertension; E11.9 Type 2 diabetes mellitus without complications; F32.9 Major depressive disorder, single episode, unspecified; M19.90 Unspecified osteoarthritis, unspecified site; Z88.0 Allergy status to penicillin; Z88.6 Allergy status to analgesic agent; Z60.2 Problems related to living alone; Y90.9 Presence of alcohol in blood, level not specified
CPT/HCPCS: 36415; 70450; 71045; 72125; 80048; 80076; 80307; 84484; 85025; 85730; 99285; L0172; G0480

== ENCOUNTER 2019-10-15 14:28 | Emergency (ER) | payer MEDICARE, OTHER ==
[~2019-10-15] VITALS: Ht 154.9 cm; Wt 62.1 kg
--- NOTE | 2019-10-15 14:35 | NUR ---
PT BIB RA WITH A C/O ETOH. PT AMBULATED INTO THE ER WITH A SLOW STEADY GAIT. PT IS DEPRESSED AND DRANK TO MUCH BECAUSE HE WAS DEPRESSED. PT IS GERMAN SPEAKIN ONLY (VERY LIMITED WELSH). PT WAS PLACED ON THE MONITOR AND POX. WILL CONTINUE TO MONITOR THE PT.
--- NOTE | 2019-10-15 14:44 | NUR ---
LUNCH TRAY ORDERED FOR THE PT.
--- NOTE | 2019-10-15 14:50 | NUR ---
PT AMBULATED TO THE BATHROOM WITH A SLOW STEADY GAIT. SITTER IS WITH THE PT. URINE SAMPLE OBTAINED. PT WAS ASSISTED BACK TO ER 14.
--- NOTE | 2019-10-15 14:51 | NUR ---
LUNCH TRAY ARRIVED AND PT IS TOLERATING PO WELL.
[2019-10-15 15:12] LABS: BASOPHILS # (AUTO) 0.1 /CMM (0.0-0.2); EOSINOPHILS % (AUTO) 0.2 % (0.0-6.0); HEMATOCRIT 28 % (39-51); HEMOGLOBIN 8.6 g/dL (13.5-17.5); LYMPHOCYTES % (AUTO) 25.6 % (20.0-44.0); MEAN CORPUSCULAR HGB CONC 31 g/dl (31.0-36.0); MEAN CORPUSCULAR VOLUME 79 fL (80-96); MONOCYTES # (AUTO) 0.2 /CMM (0.1-1.30); MONOCYTES % (AUTO) 2.9 % (2.0-12.0); NEUTROPHILS # (AUTO) 5.5 /CMM (1.8-8.9); NEUTROPHILS % (AUTO) 70.3 % (43.0-81.0); RED BLOOD CELL COUNT(AUTO) 3.49 MIL/uL (4.5-6.0); WHITE BLOOD COUNT (AUTO) 7.8 K/uL (4.3-11.0)
[2019-10-15 15:13] LABS: PLATELET COUNT (AUTO) 49 /CMM (150-450)
[2019-10-15 15:19] LABS: APPEARANCE,URINE Cloudy (CLEAR); BILIRUBIN,URINE Negative (NEGATIVE); BLOOD, URINE Negative Ery/uL (NEGATIVE); COLOR,URINE Amber (YELLOW); KETONES,URINE Negative (NEGATIVE); LEUKOCYTE ESTERASE ,URINE Negative (NEGATIVE); NITRITE, URINE Negative (NEGATIVE); PH,URINE 5.5 (5.0-8.0); PROTEIN,URINE 30 mg/dl (NEGATIVE); UGLUCOSE Negative (NEGATIVE); UROBILINOGEN,URINE 0.2 EU/dL (0.2)
[2019-10-15 15:37] LABS: CREATININE 1.2 mg/dL (0.6-1.3); POTASSIUM 3.7 mmol/L (3.5-5.1)
[2019-10-15 15:44] LABS: BACTERIA,URINE Few /HPF (None Seen); COARSE GRANULAR CASTS,URINE Few /LPF (None Seen); RBC,URINE 0-2 /HPF (0-2); SQUAMOUS EPITHELIAL CELL,UR Few /HPF (None Seen); WBC,URINE 0-2 /HPF (0-3)
[2019-10-15 15:47] LABS: ALBUMIN 3.7 g/dL (3.4-5.0); BILIRUBIN,DIRECT 0.2 mg/dL (0.0-0.2); BILIRUBIN,TOTAL 0.5 mg/dL (0.2-1.0); SALICYLATE 1.2 mg/dL (2.8-20.0); TOTAL PROTEIN, SERUM 8.1 g/dL (6.4-8.2)
[2019-10-15 15:56] LABS: BAND % (MANUAL) 1 % (0.0-5.0); LYMPHOCYTES % (MANUAL) 25 % (16-48); MONOCYTES % (MANUAL) 3 % (0-11.0); NEUTROPHILS % (MANUAL) 71 (42-76)
--- NOTE | 2019-10-15 16:36 | NUR ---
PT APPEARS TO BE RESTING COMFORTABLY, BUT STATED THAT HE IS HAVING SOME ABD DISCOMFORT IN THE RUQ. 10/15. VSS.
--- NOTE | 2019-10-15 17:52 | NUR ---
PT APPEARS TO BE SLEEPING COMFORTABLY WITH NO S/S OF PAIN OR DISTRESS. SITTER IS AT THE BEDSIDE. WILL CONTINUE TO MONITOR THE PT.
[2019-10-15 18:52] LABS: BASOPHILS # (AUTO) 0.1 /CMM (0.0-0.2); BASOPHILS % (AUTO) 1.2 % (0.0-2.0); EOSINOPHILS % (AUTO) 0.7 % (0.0-6.0); HEMATOCRIT 26 % (39-51); HEMOGLOBIN 8.2 g/dL (13.5-17.5); LYMPHOCYTES # (AUTO) 1.6 /CMM (0.8-4.8); LYMPHOCYTES % (AUTO) 30.7 % (20.0-44.0); MEAN CORPUSCULAR HGB CONC 31 g/dl (31.0-36.0); MEAN CORPUSCULAR VOLUME 80 fL (80-96); MONOCYTES # (AUTO) 0.2 /CMM (0.1-1.30); MONOCYTES % (AUTO) 4.5 % (2.0-12.0); NEUTROPHILS # (AUTO) 3.4 /CMM (1.8-8.9); NEUTROPHILS % (AUTO) 62.9 % (43.0-81.0); WHITE BLOOD COUNT (AUTO) 5.4 K/uL (4.3-11.0)
[2019-10-15 18:54] LABS: PLATELET COUNT (AUTO) 42 /CMM (150-450)
--- NOTE | 2019-10-15 19:01 | NUR ---
DINNER TRAY ARRIVED. PT REFUSED FOOD AT THIS TIME. TRAY HELD FOR PT.
--- NOTE | 2019-10-15 21:07 | NUR ---
PT APPEARS TO BE SLEEPING SOUNDLY WITH NO S/S OF PAIN OR DISTRESS. PT REFUSED DINNER TRAY.
--- NOTE | 2019-10-15 23:30 | NUR ---
PT APPEARS TO BE RESTING COMFORTABLY WITH NO S/S OF PAIN OR DISTRESS. PT IS ON THE MONITOR AND POX. WILL CONTINUE TO MONITOR THE PT.
--- NOTE | 2019-10-16 00:47 | NUR ---
PT APPEARS TO BE SLEEPING SOUNDLY WITH NO S/S OF PAIN OR DISTRESS.
--- NOTE | 2019-10-16 02:00 | NUR ---
PT APPEARS TO BE SLEEPING SOUNDLY WITH NO S/S OF PAIN OR DISTRESS.
--- NOTE | 2019-10-16 02:35 | NUR ---
report given to Ed, RN for JEFF
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
--- NOTE | 2019-10-16 06:14 | NUR ---
CLINICALS FAXED TO [facility] FOR VOLUNTARY ADMISSION.
--- NOTE | 2019-10-16 06:17 | NUR ---
PT AMBULATORY TO THE BATHROOM WITH STEADY GAIT NOTED. BLOCK SEALER REMAINS AT BEDSIDE.
--- NOTE | 2019-10-16 06:58 | NUR ---
PER [facility] PT HAS BED. TOLD WILL CALL BACK AFTER 07:30 FOR TRANSPORT INFO.
--- NOTE | 2019-10-16 09:11 | NUR ---
Dr. FRANCOIS HENRIQUEZ [phone] UNIT 1 Alexandra (intake) ETA 60-75 mins accepted to [facility]
--- NOTE | 2019-10-16 09:17 | NUR ---
Report given to Melody HENDRIX at [facility] and report given for arturo.
[2019-10-16 10:38] VITALS: BP 145/81
--- NOTE | 2019-10-16 10:39 | NUR ---
Patient picked up by private ambulance via gurney going to [facility] in no distress and calm. Denies any pain or discomfort at his time.
== END 2019-10-16 10:39 ==
LOC: ER 14:31
DX: F10.10 Alcohol abuse, uncomplicated (principal); D69.6 Thrombocytopenia, unspecified; D64.9 Anemia, unspecified; R41.82 Altered mental status, unspecified; F32.9 Major depressive disorder, single episode, unspecified; I10 Essential (primary) hypertension; E11.9 Type 2 diabetes mellitus without complications; Y90.3 Blood alcohol level of 60-79 mg/100 ml; Z59.0 Homelessness; Z98.890 Other specified postprocedural states; Z88.0 Allergy status to penicillin; Z88.6 Allergy status to analgesic agent; Z60.2 Problems related to living alone
CPT/HCPCS: 36415 ×2; 80048; 80076; 80305; 80307 ×2; 80329; 81001; 85025 ×2; 99285; G0480; 81000-TC

== ENCOUNTER 2020-02-27 13:00 | Emergency (ER) | payer MEDICARE, OTHER ==
[~2020-02-27] VITALS: Ht 144.8 cm; Wt 64.4 kg
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
--- NOTE | 2020-02-27 13:07 | NUR ---
DR LANG AT BEDSIDE FOR EVAL.
[2020-02-27 13:37] LABS: BASOPHILS # (AUTO) 0.1 /CMM (0.0-0.2); BASOPHILS % (AUTO) 2.1 % (0.0-2.0); EOSINOPHILS % (AUTO) 0.2 % (0.0-6.0); HEMATOCRIT 38 % (39-51); HEMOGLOBIN 12.1 g/dL (13.5-17.5); LYMPHOCYTES # (AUTO) 2.1 /CMM (0.8-4.8); LYMPHOCYTES % (AUTO) 30.8 % (20.0-44.0); MEAN CORPUSCULAR HGB CONC 32 g/dl (31.0-36.0); MEAN CORPUSCULAR VOLUME 92 fL (80-96); MONOCYTES # (AUTO) 0.2 /CMM (0.1-1.30); MONOCYTES % (AUTO) 2.8 % (2.0-12.0); NEUTROPHILS # (AUTO) 4.4 /CMM (1.8-8.9); NEUTROPHILS % (AUTO) 64.1 % (43.0-81.0); PLATELET COUNT (AUTO) 380 /CMM (150-450); RED BLOOD CELL COUNT(AUTO) 4.08 MIL/uL (4.5-6.0); WHITE BLOOD COUNT (AUTO) 6.9 K/uL (4.3-11.0)
[2020-02-27 13:48] LABS: CALCIUM, SERUM 7.7 mg/dL (8.5-10.1); CREATININE 1.1 mg/dL (0.6-1.3); POTASSIUM 3.3 mmol/L (3.5-5.1)
[2020-02-27 13:56] LABS: ALBUMIN 3.5 g/dL (3.4-5.0); BILIRUBIN,DIRECT 0.1 mg/dL (0.0-0.2); BILIRUBIN,TOTAL 0.2 mg/dL (0.2-1.0); SALICYLATE 0.6 mg/dL (2.8-20.0); TOTAL PROTEIN, SERUM 8.2 g/dL (6.4-8.2)
--- NOTE | 2020-02-27 14:19 | NUR ---
RUDY ZAVALA CALLED FOR EVAL
[2020-02-27 14:37] LABS: APPEARANCE,URINE Clear (CLEAR); BILIRUBIN,URINE Negative (NEGATIVE); BLOOD, URINE Trace-intact Ery/uL (NEGATIVE); COLOR,URINE Yellow (YELLOW); KETONES,URINE Negative (NEGATIVE); LEUKOCYTE ESTERASE ,URINE Negative (NEGATIVE); NITRITE, URINE Negative (NEGATIVE); PH,URINE 5.5 (5.0-8.0); PROTEIN,URINE 30 mg/dl (NEGATIVE); UGLUCOSE Negative (NEGATIVE); UROBILINOGEN,URINE 0.2 EU/dL (0.2)
[2020-02-27 14:41] LABS: BACTERIA,URINE None seen /HPF (None Seen); RBC,URINE 0-2 /HPF (0-2); SQUAMOUS EPITHELIAL CELL,UR None Seen /HPF (None Seen); WBC,URINE 0-2 /HPF (0-3)
--- NOTE | 2020-02-27 14:49 | NUR ---
RUDY CORTEZ AT BEDSIDE FOR PSYCH EVAL.
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
--- NOTE | 2020-02-27 18:53 | NUR ---
PT SLEEPING, EASILY AROUSABLE. ON MONITOR. STABLE VITALS. WILL CONTINUE TO MONITOR.
--- NOTE | 2020-02-27 19:24 | NUR ---
REPORT TO ALCON HENDRIX FOR JEFF.
--- NOTE | 2020-02-27 19:57 | NUR ---
PT RESTING COMFORTABLY. VSS. PROVIDED WITH BLANKET.
[2020-02-27 22:37] VITALS: BP 142/86
== END 2020-02-27 22:38 | disposition home or self-care (01) ==
LOC: ER 13:01
DX: F10.129 Alcohol abuse with intoxication, unspecified (principal); Y90.0 Blood alcohol level of less than 20 mg/100 ml; I10 Essential (primary) hypertension; E11.9 Type 2 diabetes mellitus without complications; F32.9 Major depressive disorder, single episode, unspecified; Z88.0 Allergy status to penicillin; Z88.6 Allergy status to analgesic agent; Z60.2 Problems related to living alone
CPT/HCPCS: 36415; 80048; 80076; 80305; 80307 ×2; 80329; 81001; 85025; 99285; G0480; 81000-TC

== ENCOUNTER 2021-03-14 14:28 | Emergency (ER) | payer MEDICARE, OTHER ==
[~2021-03-14] VITALS: Ht 144.8 cm; Wt 66.2 kg
--- NOTE | 2021-03-14 14:28 | NUR ---
PT [id number] FROM [facility] C/O NOT FEELING WELL AND DEPRESSED, +ETOH. REQUESTING ADMISSION TO [facility]. PT IS AAOX4, NOT IN RESPIRATORY DISTRESS, V/S STABLE, KEPT RESTED AND COMFORTABLE. WILL CONTINUE TO MONITOR.
--- NOTE | 2021-03-14 14:58 | NUR ---
AT BEDSIDE FOR EVAL.
[2021-03-14 15:26] LABS: BASOPHILS # (AUTO) 0.2 K/uL (0.0-0.2); BASOPHILS % (AUTO) 2.3 % (0.0-2.0); EOSINOPHILS % (AUTO) 0.3 % (0.0-6.0); HEMATOCRIT 38 % (39-51); HEMOGLOBIN 12.1 g/dL (13.5-17.5); LYMPHOCYTES # (AUTO) 2.3 K/uL (0.8-4.8); LYMPHOCYTES % (AUTO) 32.6 % (20.0-44.0); MEAN CORPUSCULAR HGB CONC 32 g/dl (31.0-36.0); MEAN CORPUSCULAR VOLUME 89 fL (80-96); MONOCYTES # (AUTO) 0.2 K/uL (0.1-1.30); MONOCYTES % (AUTO) 3.4 % (2.0-12.0); NEUTROPHILS # (AUTO) 4.4 K/uL (1.8-8.9); NEUTROPHILS % (AUTO) 61.4 % (43.0-81.0); PLATELET COUNT (AUTO) 310 K/uL (150-450); RED BLOOD CELL COUNT(AUTO) 4.23 MIL/uL (4.5-6.0); WHITE BLOOD COUNT (AUTO) 7.2 K/uL (4.3-11.0)
[2021-03-14 15:35] LABS: CREATININE 1.1 mg/dL (0.6-1.3); POTASSIUM 3.2 mmol/L (3.5-5.1)
[2021-03-14 15:42] LABS: ALBUMIN 3.8 g/dL (3.4-5.0); BILIRUBIN,DIRECT 0.1 mg/dL (0.0-0.2); BILIRUBIN,TOTAL 0.3 mg/dL (0.2-1.0); TOTAL PROTEIN, SERUM 8.6 g/dL (6.4-8.2)
--- NOTE | 2021-03-14 17:31 | NUR ---
URINE SPECIMEN COLLECTED AND SENT TO LAB.
[2021-03-14 17:55] LABS: BILIRUBIN,URINE Negative (NEGATIVE); COLOR,URINE YELLOW (YELLOW); LEUKOCYTE ESTERASE ,URINE Negative (NEGATIVE); NITRITE, URINE Negative (NEGATIVE); PH,URINE 5.5 (5.0-8.0); PROTEIN,URINE 100 mg/dl (NEGATIVE); UGLUCOSE Negative (NEGATIVE); UROBILINOGEN,URINE 0.2 EU/dL (0.2)
[2021-03-14 17:56] LABS: BACTERIA,URINE Rare /HPF (None Seen); SQUAMOUS EPITHELIAL CELL,UR Few /HPF (None Seen); WBC,URINE NONE SEEN /HPF (0-3)
--- NOTE | 2021-03-14 23:11 | NUR ---
PT AWAKE, AMBULATED TO THE NURSING STATION, ASKED FOR WATER. PT PROVIDED WITH WATER AND BLANKETS.
--- NOTE | 2021-03-15 06:23 | NUR ---
FACESHEET AND CLINICALS FAXED TO [facility].
--- NOTE | 2021-03-15 07:47 | NUR ---
ASSESSED PT ON BED AWAKE AND ALERT, NOT IN RESPIRATORY DISTRESS, V/S STABLE, KEPT RESTED AND COMFORTABLE. WILL CONTINUE TO MONITOR.
--- NOTE | 2021-03-15 11:02 | NUR ---
RE-FAXED DOCTORS NOTES TO [facility]
--- NOTE | 2021-03-15 11:36 | NUR ---
CALLED [facility] AND SPOKE WITH JANUSZ. ASSIGNED A BED A DAMIAN AQUINO. THEY ARE WORKING ON IT STILL
[2021-03-15] MEDS ORDERED: ONDANSETRON 4 MG TAB.RAPDIS ONE (11:57)
[2021-03-15] MEDS ORDERED: ONDANSETRON 4 MG TAB.RAPDIS SL ONE (12:00)
--- NOTE | 2021-03-15 12:19 | NUR ---
THE PATIENT IS COMPLAINING OF SUICIDAL IDEATION WITH NO PLAN
--- NOTE | 2021-03-15 14:30 | NUR ---
ACCEPTED AT [facility] UNDER DR. WEST CALL UNIT 2 FOR REPORT [phone]
--- NOTE | 2021-03-15 14:38 | NUR ---
SET UP S TRANSPORT WITH [facility]. SPOKE WITH ARSH. ETA IS [phone].
[2021-03-15 14:39] VITALS: BP 126/74
--- NOTE | 2021-03-15 14:40 | NUR ---
REPORT GIVEN TO [facility]MA [facility] JEFF
--- NOTE | 2021-03-15 15:10 | NUR ---
REPORT GIVEN TO EMS FOR PT TRANSFER TO [facility].
== END 2021-03-15 15:59 ==
LOC: ER 14:29
DX: F10.129 Alcohol abuse with intoxication, unspecified (principal); Y90.8 Blood alcohol level of 240 mg/100 ml or more; Z88.6 Allergy status to analgesic agent; Z88.0 Allergy status to penicillin; I10 Essential (primary) hypertension; E11.9 Type 2 diabetes mellitus without complications; M19.90 Unspecified osteoarthritis, unspecified site; F32.9 Major depressive disorder, single episode, unspecified; Z20.822 Contact with and (suspected) exposure to COVID-19
CPT/HCPCS: 36415 ×2; 80048; 80076; 80143; 80307; 80320 ×2; 81001; 85025; 87426; 99285; Q0162; C9803; G0480

== ENCOUNTER 2021-04-03 10:36 | Emergency (ER) | payer MEDICARE, OTHER ==
[~2021-04-03] VITALS: Ht 144.8 cm; Wt 66.2 kg
--- NOTE | 2021-04-03 11:00 | NUR ---
bib39, from [facility], BS 159, on room air, breathing evenly and unlabored. connected to the monitor and pulse ox. kept comfortable, will continue to monitor accordingly.
--- NOTE | 2021-04-03 19:05 | NUR ---
REC'D REPORT FROM RUMA PARSONS
--- NOTE | 2021-04-03 21:23 | NUR ---
PATIENT WAS SLEEPING UNTIL WOKEN UP. EASILY AROUSABLE THROUGH VERBAL STIMULI. PATIENT IS SOMNOLENT. PATIENT IS BREATHING EVENLY AND UNLABORED ON ROOM AIR AT 97%. CONNECTED TO THE MONITOR. SITTER AT BEDSIDE. CALL LIGHT IS WITHIN REACH. BED AT THE LOWEST LEVEL. WILL CONTINUE TO MONITOR THE PATIENT.
--- NOTE | 2021-04-03 23:21 | NUR ---
PT WANTS TO CALL SON.
--- NOTE | 2021-04-03 23:21 | NUR ---
CALLED MARINA, SHE STATES SHE IS UNABLE TO PICK PATIENT UP UNTIL THE MORNING.
--- NOTE | 2021-04-03 23:31 | NUR ---
ATTEMPTED CALL SON, OLIVA, [phone] NO ANSWER, LEFT VOICEMAIL.
--- NOTE | 2021-04-03 23:45 | NUR ---
Patient discharged to home in stable condition. Written and verbal after care instructions given. Patient verbalizes understanding of instruction. pt ambulatory with a steady gait
[2021-04-03 23:46] VITALS: BP 140/96
== END 2021-04-03 23:45 | disposition home or self-care (01) ==
LOC: ER 10:38
DX: S80.212A Abrasion, left knee, initial encounter (principal); F10.129 Alcohol abuse with intoxication, unspecified; R11.10 Vomiting, unspecified; I10 Essential (primary) hypertension; E11.9 Type 2 diabetes mellitus without complications; F32.9 Major depressive disorder, single episode, unspecified; M19.90 Unspecified osteoarthritis, unspecified site; Z88.0 Allergy status to penicillin; Z88.6 Allergy status to analgesic agent; Z60.2 Problems related to living alone; W19.XXXA Unspecified fall, initial encounter; Y93.89 Activity, other specified; Y92.89 Other specified places as the place of occurrence of the external cause; Y99.8 Other external cause status; Y90.9 Presence of alcohol in blood, level not specified

== ENCOUNTER 2021-12-28 12:31 | Emergency (ER) | payer MEDICARE, OTHER ==
[~2021-12-28] VITALS: Ht 144.8 cm; Wt 68.0 kg
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
--- NOTE | 2021-12-28 13:00 | NUR ---
EXAMINE BY DR ALICIA DIA
[2021-12-28 13:20] LABS: BASOPHILS # (AUTO) 0.1 K/uL (0.0-0.2); BASOPHILS % (AUTO) 1.1 % (0.0-2.0); EOSINOPHILS % (AUTO) 0.6 % (0.0-6.0); HEMATOCRIT 28 % (39-51); HEMOGLOBIN 9.1 g/dL (13.5-17.5); LYMPHOCYTES # (AUTO) 1.8 K/uL (0.8-4.8); LYMPHOCYTES % (AUTO) 22.8 % (20.0-44.0); MEAN CORPUSCULAR HGB CONC 33 g/dl (31.0-36.0); MEAN CORPUSCULAR VOLUME 86 fL (80-96); MONOCYTES # (AUTO) 0.3 K/uL (0.1-1.30); NEUTROPHILS # (AUTO) 5.6 K/uL (1.8-8.9); NEUTROPHILS % (AUTO) 71.5 % (43.0-81.0); PLATELET COUNT (AUTO) 290 K/uL (150-450); WHITE BLOOD COUNT (AUTO) 7.8 K/uL (4.3-11.0)
[2021-12-28 13:34] LABS: CALCIUM, SERUM 7.9 mg/dL (8.5-10.1); CARBON DIOXIDE 21 mmol/L (21-32); CHLORIDE 108 mmol/L (98-107); CREATININE 1.2 mg/dL (0.6-1.3); GLUCOSE 106 mg/dL (74-106); POTASSIUM 3.3 mmol/L (3.5-5.1); SODIUM SERUM 144 mmol/L (136-145); UREA NITROGEN, BLOOD 17 mg/dL (7-18)
--- NOTE | 2021-12-28 13:35 | NUR ---
TO CT OF HEAD
[2021-12-28 13:43] LABS: ALANINE AMINOTRANSFERASE 26 U/L (12-78); ALBUMIN 3.4 g/dL (3.4-5.0); ALKALINE PHOSPHATASE 86 U/L (46-116); ASPARTATE AMINOTRANSFERASE 41 U/L (15-37); BILIRUBIN,DIRECT 0.1 mg/dL (0.0-0.2); BILIRUBIN,TOTAL 0.5 mg/dL (0.2-1.0); TOTAL PROTEIN, SERUM 7.9 g/dL (6.4-8.2)
[2021-12-28 13:44] LABS: ACETAMINOPHEN < 10 ug/ml (10-30); ALCOHOL, BLOOD 419 mg/dL (0-0)
--- NOTE | 2021-12-28 14:00 | NUR ---
O2 SAT ON ROOM AIR 88 % FIO2 2LNC O2 SAT 9.3 %
--- NOTE | 2021-12-28 15:00 | NUR ---
LT SHOULDER WITH IMMOBLIZER PT STILL ASLEEPY
--- NOTE | 2021-12-28 15:36 | NUR ---
PT ASLEEPY NO DISTRESS SHALLOW
--- NOTE | 2021-12-28 17:30 | NUR ---
PT FULLY AWAKE AND ALERT REQUSTED TO D/;C HOME
--- NOTE | 2021-12-28 18:00 | NUR ---
D/CFIO2 O2 SAT 97-98% ELEVATED HOB ALL TIME
--- NOTE | 2021-12-28 18:15 | NUR ---
PT WALKING WITH STADY GAITE NO WEENESS FALLOW COMMAND D/C INSTRACTION GIVEN TO PT FULLY AND VERBIZED UNDETRSTOOD
[2021-12-28 18:24] VITALS: BP 132/100
== END 2021-12-28 18:25 | disposition home or self-care (01) ==
LOC: ER 12:34
DX: S20.219A Contusion of unspecified front wall of thorax, initial encounter (principal); F10.129 Alcohol abuse with intoxication, unspecified; I10 Essential (primary) hypertension; E11.9 Type 2 diabetes mellitus without complications; M19.90 Unspecified osteoarthritis, unspecified site; F32.A Depression, unspecified; Z88.8 Allergy status to other drugs, medicaments and biological substances; Z60.2 Problems related to living alone; W18.30XA Fall on same level, unspecified, initial encounter; Y93.89 Activity, other specified; Y92.89 Other specified places as the place of occurrence of the external cause; Y99.8 Other external cause status; Y90.8 Blood alcohol level of 240 mg/100 ml or more
CPT/HCPCS: 36415; 70450-TC; 71045-TC; 73030-TC; 73564-TC; 80048-TC; 80076-TC; 85025-TC; G0480

== ENCOUNTER 2022-06-09 16:34 | Emergency (ER) | payer BC, OTHER ==
[~2022-06-09] VITALS: Ht 152.4 cm; Wt 61.2 kg
[2022-06-09] MEDS ORDERED: IBUPROFEN 400 MG TABLET ONE (17:09)
[2022-06-09] MEDS: IBUPROFEN 400 MG TABLET PO ONE (17:09)
--- NOTE | 2022-06-09 17:47 | NUR ---
Patient discharged to home in stable condition. Written and verbal after care instructions given. Patient verbalizes understanding of instruction.
[2022-06-09 17:48] VITALS: BP 138/77
== END 2022-06-09 17:48 | disposition home or self-care (01) ==
LOC: ER 16:51
DX: F10.129 Alcohol abuse with intoxication, unspecified (principal); M25.562 Pain in left knee; I10 Essential (primary) hypertension; M19.90 Unspecified osteoarthritis, unspecified site; F32.A Depression, unspecified; Z88.0 Allergy status to penicillin; Z88.8 Allergy status to other drugs, medicaments and biological substances; Z60.2 Problems related to living alone; Y90.9 Presence of alcohol in blood, level not specified
CPT/HCPCS: 73564-TC